=== PATIENT | female | born 1960 | race Caucasian/White ===

== ENCOUNTER 2019-01-20 22:31 | Inpatient (IN) | payer MEDICARE, OTHER ==
[~2019-01-20] VITALS: Ht 157.5 cm; Wt 75.5 kg
[2019-01-20 22:32] VITALS: BP 128/80
--- NOTE | 2019-01-20 22:35 | NUR ---
ED Nurse Notes: Patient salome in by RA from from [facility] for swollen lower lip x 3 days. No acute distress on arrival. Has hx of seizure, hyperlipidemia. Ambulqatory with assist. Alert and oriented x4, verbally responsive. Breathing even and unlabored. No SOB. VSS.
[2019-01-20] MEDS ORDERED: ASPIRIN EC81 MG ORAL (22:40)
[2019-01-20] MEDS ORDERED: BENZTROPINE ME0.5 MG PO (22:41)
[2019-01-20] MEDS ORDERED: ATORVASTATIN CA10 MG ORAL (22:41)
[2019-01-20] MEDS ORDERED: DILANTIN100 MG ORAL (22:41)
[2019-01-20] MEDS ORDERED: PANTOPRAZOLE SO40 MG ORAL (22:42)
--- NOTE | 2019-01-20 22:43 | Emergency Room Report ---
History of Present Illness General Chief Complaint: General Complaint Source: Patient, Medical Record, EMS Present Illness HPI Presents with lower lip swelling. She denies any shortness of breath or chest pain. She is never had this reaction before according to her. EMS thought that she had low blood pressure however they had a blood pressure cuff in the wrong area. Patient denies throat swelling, sore throat, wheezing, dyspnea, skin rashes, nausea, vomiting, diarrhea. No prior history of allergies. No fevers, chills, sore throat, chest pain, palpitations, dysuria, abdominal pain,joint pain, rashes, depression, anxiety, visual changes, headache. The patient has a history of seizures. She is on medication. Allergies: Coded Allergies: No Known Allergies (Unverified , 01/20/19) Patient History Past Medical History: see triage record Social History: Reports: smoking Social History Narrative Assisted living Reviewed Nursing Documentation: PMH: Agreed; PSxH: Agreed Nursing Documentation-PMH Past Medical History: No History, Except For Hx COPD: Yes History Of Psychiatric Problem: Yes Hx Seizures: Yes Review of Systems All Other Systems: negative except mentioned in HPI Physical Exam Vital Signs Date Time Temp Pulse Resp B/P (MAP) Pulse Ox O2 Delivery O2 Flow Rate FiO2 01/20/19 22:32 98.6 80 16 128/80 (96) 98 Room Air Sp02 EP Interpretation: reviewed, normal General Appearance: well appearing, no apparent distress, GCS 15 Head: normocephalic Eyes: bilateral eye normal inspection, bilateral eye PERRL, bilateral eye EOMI ENT: moist mucus membranes, other - Left lower lip most swollen and indurated Neck: full range of motion, supple Respiratory: lungs clear, normal breath sounds, no respiratory distress, no wheezing Cardiovascular #1: regular rate, rhythm, no edema Cardiovascular #2: 2+ radial (R) Gastrointestinal: normal inspection, normal bowel sounds, non tender, non- distended, overweight Genitourinary: no CVA tenderness Musculoskeletal: back normal, normal range of motion, no calf tenderness Neurologic: alert, grossly normal, oriented Psychiatric: depressed affect Skin: other - No urticaria Medical Decision Making Diagnostic Impression: Primary Impression: Cellulitis, lip Additional Impression: Leukocytosis Qualified Codes: D72.828 - Other elevated white blood cell count ER Course Patient presents with lower lip swelling. Differential includes allergic allergic reaction, angiotensin-converting enzyme reaction, contusion, seizure, infection amongst others. Patient will be evaluated EKG, chest x-ray and labs. The patient will be very given a dose of Solu-Medrol and Benadryl. EKG without injury. Chest x-ray no infiltrates. Labs with leukocytosis. Dilantin level normal. Through time observed and lip not change. BC and antibiotics begun as most likely cellulitis/early abscess. Patient admitted medically Dr. Bee. Laboratory Tests Test 01/20/19 23:07 01/20/19 23:32 01/21/19 02:35 White Blood Count 17.1 K/UL (4.8-10.8) H Red Blood Count 4.52 M/UL (4.20-5.40) Hemoglobin 14.7 G/DL (12.0-16.0) Hematocrit 41.6 % (37.0-47.0) Mean Corpuscular Volume 92 FL (80-99) Mean Corpuscular Hemoglobin 32.6 PG (27.0-31.0) H Mean Corpuscular Hemoglobin Concent 35.5 G/DL (32.0-36.0) Red Cell Distribution Width 11.4 % (11.6-14.8) L Platelet Count 232 K/UL (150-450) Mean Platelet Volume 7.3 FL (6.5-10.1) Neutrophils (%) (Auto) 62.3 % (45.0-75.0) Lymphocytes (%) (Auto) 28.1 % (20.0-45.0) Monocytes (%) (Auto) 6.8 % (1.0-10.0) Eosinophils (%) (Auto) 1.8 % (0.0-3.0) Basophils (%) (Auto) 1.1 % (0.0-2.0) Prothrombin Time 9.2 SEC (9.30-11.50) L Prothrombin Time INR 0.9 (0.9-1.1) PTT 25 SEC (23-33) Sodium Level 139 MMOL/L (136-145) Potassium Level 4.2 MMOL/L (3.5-5.1) Chloride Level 104 MMOL/L (98-107) Carbon Dioxide Level 28 MMOL/L (21-32) Anion Gap 7 mmol/L (5-15) Blood Urea Nitrogen 6 mg/dL (7-18) L Creatinine 0.6 MG/DL (0.55-1.30) Estimate Glomerular Filtration Rate > 60 mL/min (>60) Glucose Level 115 MG/DL (74-106) H Calcium Level 9.6 MG/DL (8.5-10.1) Total Bilirubin 0.4 MG/DL (0.2-1.0) Aspartate Amino Transferase (AST) 19 U/L (15-37) Alanine Aminotransferase (ALT) 19 U/L (12-78) Alkaline Phosphatase 138 U/L (46-116) H Total Creatine Kinase 54 U/L (26-308) Troponin I 0.000 ng/mL (0.000-0.056) Pro-B-Type Natriuretic Peptide 33 pg/mL (0-125) Total Protein 8.0 G/DL (6.4-8.2) Albumin 3.4 G/DL (3.4-5.0) Globulin 4.6 g/dL Albumin/Globulin Ratio 0.7 (1.0-2.7) L Phenytoin (Dilantin) Level 13.5 ug/mL (10-20) Urine Color Pale yellow Urine Appearance Clear Urine pH 6.5 (4.5-8.0) Urine Specific [place] 1.005 (1.005-1.035) Urine Protein 1+ (NEGATIVE) H Urine Glucose (UA) Negative (NEGATIVE) Urine Ketones Negative (NEGATIVE) Urine Blood 2+ (NEGATIVE) H Urine Nitrite Negative (NEGATIVE) Urine Bilirubin Negative (NEGATIVE) Urine Urobilinogen Normal MG/DL (0.0-1.0) Urine Leukocyte Esterase Negative (NEGATIVE) Urine RBC 10-15 /HPF (0 - 2) H Urine WBC 0-2 /HPF (0 - 2) Urine Squamous Epithelial Cells Few /LPF (NONE/OCC) Urine Bacteria None /HPF (NONE) Lactic Acid Level 0.90 mmol/L (0.4-2.0) EKG Diagnostic Results Rate: normal Rhythm: NSR ST Segments: no acute changes Rhythm Strip Diag. Results EP Interpretation: yes Rhythm: NSR, no PVC's, no ectopy Chest X-Ray Diagnostic Results Chest X-Ray Diagnostic Results : Chest X-Ray Ordered: Yes # of Views/Limited/Complete: 1 View Indication: Other EP Interpretation: Yes Interpretation: no consolidation, no effusion, no pneumothorax, other - nodularity Impression: Other Electronically Signed by: Electronically signed by David Garcia MD Last Vital Signs Date Time Temp Pulse Resp B/P (MAP) Pulse Ox O2 Delivery O2 Flow Rate FiO2 01/21/19 03:30 98.2 96 20 100/63 (75) 92 01/21/19 03:13 Room Air Status: improved Disposition: ADMITTED INPATIENT Condition: Serious David Garcia MD Jan 20, 2019 22:43
[2019-01-20] MEDS ORDERED: Solu-MEDROL 125mg Inj IVP ONE (22:45)
[2019-01-20] MEDS ORDERED: DiphenhydrAMINE 50mg/ml Inj IVP ONE (22:45)
--- NOTE | 2019-01-20 22:50 | NUR ---
ED Nurse Note: Xray done at bedside.
[2019-01-20 23:22] LABS: BASOPHILS % (AUTO) 1.1 % (0.0-2.0); EOSINOPHILS % (AUTO) 1.8 % (0.0-3.0); HEMATOCRIT 41.6 % (37.0-47.0); HEMOGLOBIN 14.7 G/DL (12.0-16.0); LYMPHOCYTES % (AUTO) 28.1 % (20.0-45.0); MEAN CORPUSCULAR VOLUME 92 FL (80-99); MONOCYTES % (AUTO) 6.8 % (1.0-10.0); NEUTROPHILS % (AUTO) 62.3 % (45.0-75.0); PLATELET COUNT 232 K/UL (150-450); RED BLOOD COUNT 4.52 M/UL (4.20-5.40); RED CELL DISTRIBUTION WIDTH 11.4 % (11.6-14.8); WHITE BLOOD COUNT 17.1 K/UL (4.8-10.8)
--- NOTE | 2019-01-20 23:30 | NUR ---
ED Nurse Note: Blood and urine sent to lab.
[2019-01-20 23:39] LABS: INR 0.9 (0.9-1.1)
[2019-01-20 23:40] LABS: ANION GAP 7 mmol/L (5-15); BLOOD UREA NITROGEN 6 mg/dL (7-18); CALCIUM 9.6 MG/DL (8.5-10.1); CARBON DIOXIDE 28 MMOL/L (21-32); CHLORIDE 104 MMOL/L (98-107); CREATININE 0.6 MG/DL (0.55-1.30); POTASSIUM 4.2 MMOL/L (3.5-5.1); SODIUM 139 MMOL/L (136-145)
[2019-01-20 23:42] LABS: APPEARANCE,URINE CLEAR; BILIRUBIN, URINE NEGATIVE (NEGATIVE); COLOR,URINE PALE YELLOW; GLUCOSE, URINE (UA) NEGATIVE (NEGATIVE); KETONES,URINE NEGATIVE (NEGATIVE); LEUKOCYTE ESTERASE ,URINE NEGATIVE (NEGATIVE); NITRITE,URINE NEGATIVE (NEGATIVE); PH,URINE 6.5 (4.5-8.0); PROTEIN,URINE 1+ (NEGATIVE); UROBILINOGEN,URINE NORMAL MG/DL (0.0-1.0)
[2019-01-20 23:51] LABS: ALANINE AMINOTRANSFERASE 19 U/L (12-78); ALBUMIN 3.4 G/DL (3.4-5.0); ALBUMIN/GLOBULIN RATIO 0.7 (1.0-2.7); ALKALINE PHOSPHATASE 138 U/L (46-116); ASPARTATE AMINO TRANSFERASE 19 U/L (15-37); BILIRUBIN,TOTAL 0.4 MG/DL (0.2-1.0); CREATINE KINASE 54 U/L (26-308)
[2019-01-21] VITALS (7 sets, daily range): BP systolic 90–120; BP diastolic 46–70
--- NOTE | 2019-01-21 01:18 | NUR ---
ED Nurse Note: Patient seen sleeping in bed. Lips still swollen, no worsening noted. Breathing even and unlabored. No SOB. VSS.
[2019-01-21] MEDS ORDERED: Piperacillin/Tazobactam 3.375 GM in NS 110 ML IVPB ONE (02:45)
[2019-01-21] MEDS ORDERED: Vancomycin 1 GM in NS 275 ML IVPB ONE (02:45)
--- NOTE | 2019-01-21 03:13 | NUR ---
TRANSFER TO FLOOR: Patient transferred to [facility] unit as ordered. Report given to Goldie CONCEPCION. Patient is alert and orientedx4, verbally responsive. Breathing even and unlabored. No SOB. IV line on right forearm patent and intact. On vanco 1gm, infusing well. VSS. Belongings was given to the patient.
--- NOTE | 2019-01-21 03:30 | NUR ---
NURSE NOTES: Pt came up to unit via gurney in stable condition and w/belongings accounted for. Pt A&Ox4, VSS, and in no apparent distress. IV site intact/asymptomatic w/Vanco infusing and skin intact and lower lip swelling noted. Will contact admitting MD for orders; will continue to monitor.
--- NOTE | 2019-01-21 07:30 | NUR ---
HAND-OFF: Report given to Cindi Mclean RN. Endorsed to please follow up re: admission orders.
--- NOTE | 2019-01-21 07:45 | NUR ---
NURSE NOTES: Received report from JAMEY Glover. Rounding done with outgoing nurse. Pt asleep in bed. Bed in lowest position, call light within reach. Will continue to monitor.
[2019-01-21] MEDS ORDERED: Albuterol/Ipratropium 3ml neb HHN PRN (08:15)
[2019-01-21] MEDS ORDERED: Morphine Sulfate 2mg/ml Inj(IV/IM USE ONLY) IVP PRN (08:15)
[2019-01-21] MEDS ORDERED: Miralax 17gm pkt ORAL PRN (08:15)
[2019-01-21] MEDS ORDERED: Nitroglycerin Subl 0.4mg tab SL PRN (08:30)
[2019-01-21] MEDS: Phenytoin 100mg cap ORAL SCH ×3 (08:58→21:04)
[2019-01-21] MEDS: Aspirin EC 81mg tab ORAL SCH (08:58)
[2019-01-21] MEDS: Heparin 5000 units/ml inj SUBQ SCH ×2 (08:59→21:07)
--- NOTE | 2019-01-21 09:23 | NUR ---
NURSE NOTES: Dr. Santos was notified for consults.
[2019-01-21] MEDS ORDERED: Cefepime HCl 2 GM in D5W 110 ML IV SCH (10:00)
[2019-01-21] MEDS ORDERED: Vancomycin 1.25gm/NS Premix IVPB SCH (11:00)
--- NOTE | 2019-01-21 16:00 | Consultation ---
History of Present Illness General Date patient seen: Jan 21, 2019 Chief Complaint: General Complaint Present Illness HPI 59 y/o F with hx of seizure disorder, COPD presented to ED on 01/20 with lower lip swelling Denied SOB, chest pain, throat swelling, wheezing, dyspnea, skin rash, nausea/ vomiting/diarrhea, f/c Allergies: Coded Allergies: No Known Allergies (Unverified , 01/20/19) Medication History Scheduled Aspirin Ec* (Aspirin Ec*), 81 MG ORAL DAILY, (Reported) Atorvastatin Calcium* (Lipitor*), 10 MG ORAL BEDTIME, (Reported) Benztropine Mesylate* (Cogentin*), 1 MG PO BID, (Reported) Pantoprazole* (Pantoprazole*), 40 MG ORAL DAILY, (Reported) Phenytoin Sodium Extended* (Dilantin*), 100 MG ORAL THREE TIMES A DAY, (Reported ) Patient History Healthcare decision maker Resuscitation status Full Code Advanced Directive on File Patient History Narrative Pmhx: as above Shx: Reports: smoking Fhx: non contributory Review of Systems All Other Systems: negative except mentioned in HPI Physical Exam Physical Exam Narrative General Appearance: well appearing, no apparent distress, GCS 15 Head: normocephalic Eyes: bilateral eye normal inspection, bilateral eye PERRL, bilateral eye EOMI ENT: moist mucus membranes, other - Left lower lip most swollen and indurated Neck: full range of motion, supple Respiratory: lungs clear, normal breath sounds, no respiratory distress, no wheezing Cardiovascular : regular rate, rhythm, no edema Gastrointestinal: normal inspection, normal bowel sounds, non tender, non- distended, overweight Genitourinary: no CVA tenderness Musculoskeletal: back normal, normal range of motion, no calf tenderness Neurologic: alert, grossly normal, oriented Psychiatric: depressed affect Skin: other - No urticaria Last 24 Hour Vital Signs Date Time Temp Pulse Resp B/P (MAP) Pulse Ox O2 Delivery O2 Flow Rate FiO2 01/21/19 12:00 98.3 80 19 91/58 (69) 100 01/21/19 09:00 Nasal Cannula 2.0 01/21/19 08:45 87 20 93 Nasal Cannula 2.0 28 01/21/19 08:00 98.1 82 18 90/46 (61) 94 01/21/19 04:00 Room Air 01/21/19 03:30 98.2 96 20 100/63 (75) 92 9/2/19 03:13 98.5 98 22 120/70 94 Room Air 01/21/19 03:08 98.5 98 22 120/70 94 Room Air 01/21/19 01:23 97.0 105 21 103/64 95 Room Air 01/20/19 22:32 98.6 80 16 128/80 (96) 98 Room Air 01/20/19 22:32 80 16 Room Air 01/20/19 22:32 98.6 80 16 128/80 98 Room Air Intake and Output 01/20/19 01/21/19 19:00 07:00 Intake Total 0 ml Balance 0 ml Intake Oral 0 ml # Voids 2 Laboratory Tests Test 01/20/19 23:07 01/20/19 23:32 01/21/19 02:35 White Blood Count 17.1 K/UL (4.8-10.8) H Red Blood Count 4.52 M/UL (4.20-5.40) Hemoglobin 14.7 G/DL (12.0-16.0) Hematocrit 41.6 % (37.0-47.0) Mean Corpuscular Volume 92 FL (80-99) Mean Corpuscular Hemoglobin 32.6 PG (27.0-31.0) H Mean Corpuscular Hemoglobin Concent 35.5 G/DL (32.0-36.0) Red Cell Distribution Width 11.4 % (11.6-14.8) L Platelet Count 232 K/UL (150-450) Mean Platelet Volume 7.3 FL (6.5-10.1) Neutrophils (%) (Auto) 62.3 % (45.0-75.0) Lymphocytes (%) (Auto) 28.1 % (20.0-45.0) Monocytes (%) (Auto) 6.8 % (1.0-10.0) Eosinophils (%) (Auto) 1.8 % (0.0-3.0) Basophils (%) (Auto) 1.1 % (0.0-2.0) Prothrombin Time 9.2 SEC (9.30-11.50) L Prothromb Time International Ratio 0.9 (0.9-1.1) Activated Partial Thromboplast Time 25 SEC (23-33) Sodium Level 139 MMOL/L (136-145) Potassium Level 4.2 MMOL/L (3.5-5.1) Chloride Level 104 MMOL/L (98-107) Carbon Dioxide Level 28 MMOL/L (21-32) Anion Gap 7 mmol/L (5-15) Blood Urea Nitrogen 6 mg/dL (7-18) L Creatinine 0.6 MG/DL (0.55-1.30) Estimat Glomerular Filtration Rate > 60 mL/min (>60) Glucose Level 115 MG/DL (74-106) H Calcium Level 9.6 MG/DL (8.5-10.1) Total Bilirubin 0.4 MG/DL (0.2-1.0) Aspartate Amino Transf (AST/SGOT) 19 U/L (15-37) Alanine Aminotransferase (ALT/SGPT) 19 U/L (12-78) Alkaline Phosphatase 138 U/L (46-116) H Total Creatine Kinase 54 U/L (26-308) Troponin I 0.000 ng/mL (0.000-0.056) Pro-B-Type Natriuretic Peptide 33 pg/mL (0-125) Total Protein 8.0 G/DL (6.4-8.2) Albumin 3.4 G/DL (3.4-5.0) Globulin 4.6 g/dL Albumin/Globulin Ratio 0.7 (1.0-2.7) L Phenytoin (Dilantin) Level 13.5 ug/mL (10-20) Urine Color Pale yellow Urine Appearance Clear Urine pH 6.5 (4.5-8.0) Urine Specific [place] 1.005 (1.005-1.035) Urine Protein 1+ (NEGATIVE) H Urine Glucose (UA) Negative (NEGATIVE) Urine Ketones Negative (NEGATIVE) Urine Blood 2+ (NEGATIVE) H Urine Nitrite Negative (NEGATIVE) Urine Bilirubin Negative (NEGATIVE) Urine Urobilinogen Normal MG/DL (0.0-1.0) Urine Leukocyte Esterase Negative (NEGATIVE) Urine RBC 10-15 /HPF (0 - 2) H Urine WBC 0-2 /HPF (0 - 2) Urine Squamous Epithelial Cells Few /LPF (NONE/OCC) Urine Bacteria None /HPF (NONE) Lactic Acid Level 0.90 mmol/L (0.4-2.0) Microbiology Date/Time Source Procedure Growth Status 01/21/19 02:30 Rectum Received Height (Feet): 5 Height (Inches): 2.00 Weight (Pounds): 166 Medications Current Medications Medications (Trade) Dose Ordered Sig/Wolfgang Route PRN Reason Start Time Stop Time Status Last Admin Dose Admin Acetaminophen (Tylenol) 650 mg Q4H PRN ORAL T>100.5 01/21/19 08:15 02/20/19 08:14 Albuterol/ Ipratropium (Albuterol/ Ipratropium) 3 ml Q4H PRN HHN Shortness of Breath 01/21/19 08:15 01/26/19 08:14 Aspirin (Ecotrin) 81 mg DAILY ORAL 01/21/19 09:00 02/20/19 08:59 01/21/19 08:58 Atorvastatin Calcium (Lipitor) 10 mg BEDTIME ORAL 01/21/19 21:00 02/20/19 20:59 Cefepime HCl 2 gm/ Dextrose 110 ml @ 220 mls/hr EVERY 12 HOURS IV 01/21/19 10:00 01/28/19 09:59 01/21/19 10:26 Dextrose (Dextrose 50%) 25 ml STAT PRN IV Hypoglycemia 01/21/19 08:15 02/20/19 08:14 Dextrose (Dextrose 50%) 50 ml Q30M PRN IV Hypoglycemia 01/21/19 08:15 02/20/19 08:14 Heparin Sodium (Porcine) (Heparin 5000 units/ml) 5,000 units EVERY 12 HOURS SUBQ 01/21/19 09:00 02/20/19 08:59 01/21/19 08:59 Morphine Sulfate (Morphine Sulfate) 2 mg Q4H PRN IVP Moderate Pain (Pain Scale 4-6) 01/21/19 08:15 01/28/19 08:14 Nitroglycerin (Ntg) 0.4 mg Q5MIN X 3 DOSES PRN SL Prn Chest Pain 01/21/19 08:30 02/20/19 08:29 Ondansetron HCl (Zofran) 4 mg Q6H PRN IVP Nausea & Vomiting 01/21/19 08:15 02/20/19 08:14 Pantoprazole (Protonix) 40 mg DAILY ORAL 01/21/19 09:00 02/20/19 08:59 01/21/19 08:58 Phenytoin (Dilantin) 100 mg Q8HR ORAL 01/21/19 09:00 02/20/19 08:59 01/21/19 13:56 Polyethylene Glycol (Miralax) 17 gm DAILYPRN PRN ORAL Constipation 01/21/19 08:15 02/20/19 08:14 Temazepam (Restoril) 15 mg HSPRN PRN ORAL Insomnia 01/21/19 21:00 01/28/19 20:59 Vancomycin HCl (Vanco rx to dose) 1 ea DAILY PRN MISC . 01/21/19 08:30 02/20/19 08:29 Vancomycin/Sodium Chloride 275 ml @ 183.333 mls/hr Q12HR IVPB 01/21/19 11:00 01/26/19 10:59 01/21/19 12:50 Assessment/Plan Assessment/Plan: Abx: IV Vancomycin 01/21- Cefepime 01/21- Zosyn x1 01/21 Assessment: Lower lip lesion- doubt infection- ?allergic reaction vs angioedema Afebrile Leukocytosis, likely reactive -u/a neg seizure disorder COPD Plan: -D/c IV Vancomcyin and Cefepime #1 -f/u cx -Monitor CBC/CMP, temperatures -CBC am -C1 inhibitor levels -Supervisor Files evaluation Thank you for this consultation. Will continue to follow along with you. Discussed with Janelle Rodrigues M.D. Jan 21, 2019 16:00
--- NOTE | 2019-01-21 17:15 | History and Physical Report ---
DATE OF ADMISSION: 01/21/2019 TIME SEEN: 9 a.m. CONSULTANTS: 1. Fred Morris M.D. 2. Nathen Neely M.D. CHIEF COMPLAINT: Lower lip swelling, cellulitis. BRIEF HISTORY: This is a 59-year-old female from [facility], who presents with three days of increasing lower lip cellulitis and red and swelling. The patient does not remember any bug bite or any new medication. The patient came with above, no respiratory distress, admitted to medical floor for further treatment. Currently, calm in bed, O2 NC, eating, no complaint. REVIEW OF SYSTEMS: No chest pain. No shortness of breath. No nausea, vomiting, or diarrhea. PAST MEDICAL HISTORY: Per patient nothing. PAST SURGICAL HISTORY: None. ALLERGIES: Denies. MEDICATIONS: Include Lipitor, Restoril, vancomycin, cefepime, Ecotrin, Protonix, Dilantin, heparin, nitroglycerin, Zofran, morphine, and albuterol. SOCIAL HISTORY: Positive smoking. No alcohol. No intravenous drug abuse. FAMILY HISTORY: Noncontributory. PHYSICAL EXAMINATION: GENERAL: Calm in bed, oriented x2, in no acute distress. VITAL SIGNS: Temperature 98 degrees, pulse 82, respirations 18, and blood pressure 90/46. CARDIOVASCULAR: No murmurs. LUNGS: Distant and clear. ABDOMEN: Bowel sound positive. Nontender. Nondistended. EXTREMITIES: No cyanosis, clubbing, or edema. SKIN: Lower lip swelling 0.5 cm x 0.5 cm protrusion. No redness. No tenderness. No increased warmth. NEUROLOGIC: The patient moves all extremities, slightly weak. LABORATORY AND DIAGNOSTIC DATA: Labs at this time show white count 17, otherwise CBC is normal. BMP shows BUN 6, glucose 115. Alkaline phosphatase 138. Troponin 0.00. INR is 0.9. PTT is 25. Urinalysis shows 2+ blood, 1+ protein, otherwise normal. Urine tox, phenytoin . ASSESSMENT: 1. Lower lip cellulitis, swelling. 2. Leukocytosis. PLAN: 1. Antibiotics per Infectious Disease. 2. Anti-allergy medication p.r.n. 3. Dr. Morris and Dr. Neely to consult. 4. PT and dietary evaluation. 5. CBC and BMP in the morning. Jules Bee D.O. DR: TIANA JOB#: [id number] CC:
--- NOTE | 2019-01-21 19:37 | NUR ---
HAND-OFF: Report given to JAMEY Dean.
--- NOTE | 2019-01-21 22:39 | NUR ---
NURSE NOTE: Pt is oriented to self and place, displays rambling speech. VS stable. Orders reviewed and physical assessment completed. Pt denies any pain. Seizure pads are in place. The bed is low and locked and the bed alarm is activated. Call mensah is within reach. Will continue to monitor.
[2019-01-22] MEDS ORDERED: Vancomycin 1 GM in D5W 275 ML IV SCH (00:30)
[2019-01-22 04:30] VITALS: BP 105/61
[2019-01-22] MEDS: Phenytoin 100mg cap ORAL SCH ×3 (05:12→21:56)
[2019-01-22 06:51] LABS: ALANINE AMINOTRANSFERASE 16 U/L (12-78); ALBUMIN 2.9 G/DL (3.4-5.0); ALBUMIN/GLOBULIN RATIO 0.7 (1.0-2.7); ALKALINE PHOSPHATASE 106 U/L (46-116); ANION GAP 12 mmol/L (5-15); ASPARTATE AMINO TRANSFERASE 11 U/L (15-37); BILIRUBIN,TOTAL 0.2 MG/DL (0.2-1.0); BLOOD UREA NITROGEN 13 mg/dL (7-18); CALCIUM 9.3 MG/DL (8.5-10.1); CARBON DIOXIDE 25 MMOL/L (21-32); CHLORIDE 113 MMOL/L (98-107); CREATININE 0.5 MG/DL (0.55-1.30); POTASSIUM 3.6 MMOL/L (3.5-5.1); SODIUM 150 MMOL/L (136-145)
[2019-01-22 07:04] LABS: EOSINOPHILS % (AUTO) 3.8 % (0.0-3.0); HEMATOCRIT 40.1 % (37.0-47.0); HEMOGLOBIN 13.3 G/DL (12.0-16.0); LYMPHOCYTES % (AUTO) 46.8 % (20.0-45.0); MEAN CORPUSCULAR VOLUME 97 FL (80-99); MONOCYTES % (AUTO) 6.1 % (1.0-10.0); NEUTROPHILS % (AUTO) 42.4 % (45.0-75.0); PLATELET COUNT 253 K/UL (150-450); RED BLOOD COUNT 4.15 M/UL (4.20-5.40); RED CELL DISTRIBUTION WIDTH 11.9 % (11.6-14.8); WHITE BLOOD COUNT 10.5 K/UL (4.8-10.8)
--- NOTE | 2019-01-22 07:30 | NUR ---
NURSE NOTES: Received report from Dianne CONCEPCION. Patient is asleep during rounds, no acute distress noted, RR even and unlabored. IV intact. Fall and seizure precautions maintained, side rails padded x2, side rails upx3, bed low and locked, call light in reach. Will continue to monitor.
[2019-01-22 08:00] VITALS: BP 96/61
[2019-01-22] MEDS: Aspirin EC 81mg tab ORAL SCH (09:50)
[2019-01-22] MEDS: Heparin 5000 units/ml inj SUBQ SCH ×2 (09:51→20:23)
--- NOTE | 2019-01-22 10:10 | NUR ---
PT EVALUATION NOTE Patient seen for initial evaluation, see complete evaluation for details. Patient presents with generalized weakness, impaired balance and decreased safety awareness which affects patient's ability to complete mobility tasks and presents a fall risk. Patient requires min assist for transfers and ambulation limited distance with FWW. Patient ambulates on the forefoot of bilateral feet due to plantar flexion contractures with impaired balance. Patient will benefit from skilled inpatient PT intervention to address strength, ROM, safety, balance and functional mobility. Recommend return to board and care at discharge once medically cleared by MD. Addendum: 01/22/19 at 1254 by ROXANA NIX PT Amended: Links added.
--- NOTE | 2019-01-22 10:48 | Diagnostic Imaging Report ---
Indication: Chest pain Technique: One view of the chest Comparison: none Findings: The heart is enlarged. There is some atelectasis in the right perihilar region. There is equivocal minimal interstitial prominence and indistinctness. No focal airspace consolidation. Pleural spaces are clear. Impression: Cardiomegaly Equivocal minimal interstitial congestion. Correlate with clinical findings
--- NOTE | 2019-01-22 11:24 | NUR ---
NURSE NOTES: Patient had episode of diarrhea. Informed Dr. Morris and ordered c-diff per protocol. Stool collected and sent to lab.
--- NOTE | 2019-01-22 11:32 | Consultation ---
History of Present Illness General Date patient seen: Jan 22, 2019 Chief Complaint: General Complaint Present Illness HPI 59 year old female with hx of COPD, Nicotine addiction, chronic seizures, prison resident presented to ER with lower lip swelling. She denies any shortness of breath or chest pain. . Patient denies throat swelling, sore throat, wheezing, dyspnea, skin rashes, nausea, vomiting, diarrhea. Pt was diagnosed to have lower lip cellulitis and admitted for further treatment. Allergies: Coded Allergies: No Known Allergies (Unverified , 01/20/19) Medication History Scheduled Aspirin Ec* (Aspirin Ec*), 81 MG ORAL DAILY, (Reported) Atorvastatin Calcium* (Lipitor*), 10 MG ORAL BEDTIME, (Reported) Benztropine Mesylate* (Cogentin*), 1 MG PO BID, (Reported) Pantoprazole* (Pantoprazole*), 40 MG ORAL DAILY, (Reported) Phenytoin Sodium Extended* (Dilantin*), 100 MG ORAL THREE TIMES A DAY, (Reported ) Patient History Healthcare decision maker Resuscitation status Full Code Advanced Directive on File Past Medical/Surgical History Past Medical/Surgical History: (1) COPD (chronic obstructive pulmonary disease) (2) Nicotine addiction Review of Systems All Other Systems: negative except mentioned in HPI Physical Exam General Appearance: WD/WN Lines, tubes and drains: peripheral HEENT: normocephalic, atraumatic Neck: non-tender, normal alignment, normal inspection Respiratory/Chest: chest wall non-tender, lungs clear Breasts: no masses Cardiovascular/Chest: normal peripheral pulses Abdomen: normal bowel sounds, non tender Genitourinary/Rectal: normal genital exam Extremities: normal range of motion Skin Exam: normal pigmentation Last 24 Hour Vital Signs Date Time Temp Pulse Resp B/P (MAP) Pulse Ox O2 Delivery O2 Flow Rate FiO2 01/22/19 08:00 99.3 76 19 96/61 (73) 95 01/22/19 07:54 93 Nasal Cannula 2.0 28 01/22/19 07:53 92 20 93 Nasal Cannula 2.0 28 01/22/19 04:30 98.9 87 17 105/61 (76) 92 01/21/19 21:00 Nasal Cannula 2.0 01/21/19 20:49 98.9 80 18 94/59 (71) 95 01/21/19 20:00 80 20 95 Nasal Cannula 2.0 28 01/21/19 20:00 95 Nasal Cannula 2.0 28 01/21/19 16:00 98.9 83 18 95/66 (76) 95 01/21/19 12:00 98.3 80 19 91/58 (69) 100 Intake and Output 01/21/19 01/22/19 19:00 07:00 Intake Total 1085 ml 240 ml Balance 1085 ml 240 ml Intake Oral 700 ml 240 ml IV Total 385 ml # Voids 4 2 # Bowel Movements 2 Laboratory Tests Test 01/22/19 05:24 01/22/19 05:25 White Blood Count 10.5 K/UL (4.8-10.8) Red Blood Count 4.15 M/UL (4.20-5.40) L Hemoglobin 13.3 G/DL (12.0-16.0) Hematocrit 40.1 % (37.0-47.0) Mean Corpuscular Volume 97 FL (80-99) Mean Corpuscular Hemoglobin 32.0 PG (27.0-31.0) H Mean Corpuscular Hemoglobin Concent 33.1 G/DL (32.0-36.0) Red Cell Distribution Width 11.9 % (11.6-14.8) Platelet Count 253 K/UL (150-450) Mean Platelet Volume 7.0 FL (6.5-10.1) Neutrophils (%) (Auto) 42.4 % (45.0-75.0) L Lymphocytes (%) (Auto) 46.8 % (20.0-45.0) H Monocytes (%) (Auto) 6.1 % (1.0-10.0) Eosinophils (%) (Auto) 3.8 % (0.0-3.0) H Basophils (%) (Auto) 1.0 % (0.0-2.0) Sodium Level 150 MMOL/L (136-145) H Potassium Level 3.6 MMOL/L (3.5-5.1) Chloride Level 113 MMOL/L (98-107) H Carbon Dioxide Level 25 MMOL/L (21-32) Anion Gap 12 mmol/L (5-15) Blood Urea Nitrogen 13 mg/dL (7-18) Creatinine 0.5 MG/DL (0.55-1.30) L Estimat Glomerular Filtration Rate > 60 mL/min (>60) Glucose Level 105 MG/DL (74-106) Calcium Level 9.3 MG/DL (8.5-10.1) Total Bilirubin 0.2 MG/DL (0.2-1.0) Aspartate Amino Transf (AST/SGOT) 11 U/L (15-37) L Alanine Aminotransferase (ALT/SGPT) 16 U/L (12-78) Alkaline Phosphatase 106 U/L (46-116) Total Protein 6.8 G/DL (6.4-8.2) Albumin 2.9 G/DL (3.4-5.0) L Globulin 3.9 g/dL Albumin/Globulin Ratio 0.7 (1.0-2.7) L Circulating Immune Complexes Pending C1 Esterase Inhibitor Pending Height (Feet): 5 Height (Inches): 2.00 Weight (Pounds): 166 Medications Current Medications Medications (Trade) Dose Ordered Sig/Wolfgang Route PRN Reason Start Time Stop Time Status Last Admin Dose Admin Acetaminophen (Tylenol) 650 mg Q4H PRN ORAL T>100.5 01/21/19 08:15 02/20/19 08:14 Albuterol/ Ipratropium (Albuterol/ Ipratropium) 3 ml Q4H PRN HHN Shortness of Breath 01/21/19 08:15 01/26/19 08:14 Aspirin (Ecotrin) 81 mg DAILY ORAL 01/21/19 09:00 02/20/19 08:59 01/22/19 09:50 Atorvastatin Calcium (Lipitor) 10 mg BEDTIME ORAL 01/21/19 21:00 02/20/19 20:59 01/21/19 21:04 Dextrose (Dextrose 50%) 25 ml STAT PRN IV Hypoglycemia 01/21/19 08:15 02/20/19 08:14 Dextrose (Dextrose 50%) 50 ml Q30M PRN IV Hypoglycemia 01/21/19 08:15 02/20/19 08:14 Heparin Sodium (Porcine) (Heparin 5000 units/ml) 5,000 units EVERY 12 HOURS SUBQ 01/21/19 09:00 02/20/19 08:59 01/22/19 09:51 Morphine Sulfate (Morphine Sulfate) 2 mg Q4H PRN IVP Moderate Pain (Pain Scale 4-6) 01/21/19 08:15 01/28/19 08:14 Nitroglycerin (Ntg) 0.4 mg Q5MIN X 3 DOSES PRN SL Prn Chest Pain 01/21/19 08:30 02/20/19 08:29 Ondansetron HCl (Zofran) 4 mg Q6H PRN IVP Nausea & Vomiting 01/21/19 08:15 02/20/19 08:14 Pantoprazole (Protonix) 40 mg DAILY ORAL 01/21/19 09:00 02/20/19 08:59 01/22/19 09:50 Phenytoin (Dilantin) 100 mg Q8HR ORAL 01/21/19 09:00 02/20/19 08:59 01/22/19 05:12 Polyethylene Glycol (Miralax) 17 gm DAILYPRN PRN ORAL Constipation 01/21/19 08:15 02/20/19 08:14 Temazepam (Restoril) 15 mg HSPRN PRN ORAL Insomnia 01/21/19 21:00 01/28/19 20:59 01/21/19 22:24 Assessment/Plan Problem List: (1) Facial cellulitis ICD Codes: L03.211 - Cellulitis of face SNOMED: 017295117 (2) COPD (chronic obstructive pulmonary disease) ICD Codes: J44.9 - Chronic obstructive pulmonary disease, unspecified SNOMED: 17650024 (3) Nicotine addiction ICD Codes: F17.200 - Nicotine dependence, unspecified, uncomplicated SNOMED: 98252190 Assessment/Plan: respiratory treatment titrate fio2 to sat of 92% IV abx for cellulitis symptomatic treatment seizure precaution Fred Morris MD Jan 22, 2019 11:32
--- NOTE | 2019-01-22 11:59 | Infectious Diseases Prog Note ---
Assessment/Plan Assessment/Plan Assessment: Lower lip swelling- doubt infection- ?allergic reaction vs angioedema Afebrile Leukocytosis, likely reactive- resolved -u/a neg seizure disorder COPD Plan: -Continue to monitor off abx -01/21 SP IV Vancomycin, Cefepime #1, ZOsyn x1 -f/u cx -Monitor CBC/CMP, temperatures -f/u C1 inhibitor levels -Engineering Administrator evaluation Thank you for this consultation. Will continue to follow along with you. Discussed with RN. Subjective Allergies: Coded Allergies: No Known Allergies (Unverified , 01/20/19) Subjective afebrile leukocytosis resolved Objective Vital Signs Last 24 Hour Vital Signs Date Time Temp Pulse Resp B/P (MAP) Pulse Ox O2 Delivery O2 Flow Rate FiO2 01/22/19 08:00 99.3 76 19 96/61 (73) 95 01/22/19 07:54 93 Nasal Cannula 2.0 28 01/22/19 07:53 92 20 93 Nasal Cannula 2.0 28 01/22/19 04:30 98.9 87 17 105/61 (76) 92 01/21/19 21:00 Nasal Cannula 2.0 01/21/19 20:49 98.9 80 18 94/59 (71) 95 01/21/19 20:00 80 20 95 Nasal Cannula 2.0 28 01/21/19 20:00 95 Nasal Cannula 2.0 28 01/21/19 16:00 98.9 83 18 95/66 (76) 95 01/21/19 12:00 98.3 80 19 91/58 (69) 100 Height (Feet): 5 Height (Inches): 2.00 Weight (Pounds): 166 Objective General Appearance: well appearing, no apparent distress, GCS 15 Head: normocephalic Eyes: bilateral eye normal inspection, bilateral eye PERRL, bilateral eye EOMI ENT: moist mucus membranes, other - Left lower lip most swollen and indurated Neck: full range of motion, supple Respiratory: lungs clear, normal breath sounds, no respiratory distress, no wheezing Cardiovascular : regular rate, rhythm, no edema Gastrointestinal: normal inspection, normal bowel sounds, non tender, non- distended, overweight Genitourinary: no CVA tenderness Musculoskeletal: back normal, normal range of motion, no calf tenderness Neurologic: alert, grossly normal, oriented Psychiatric: depressed affect Skin: other - No urticaria Microbiology Date/Time Source Procedure Growth Status 01/21/19 02:35 Blood Blood Culture - Preliminary NO GROWTH AFTER 24 HOURS Resulted 01/21/19 02:20 Blood Blood Culture - Preliminary NO GROWTH AFTER 24 HOURS Resulted 01/21/19 02:30 Rectum Received Laboratory Tests Test 01/22/19 05:24 01/22/19 05:25 White Blood Count 10.5 K/UL (4.8-10.8) Red Blood Count 4.15 M/UL (4.20-5.40) L Hemoglobin 13.3 G/DL (12.0-16.0) Hematocrit 40.1 % (37.0-47.0) Mean Corpuscular Volume 97 FL (80-99) Mean Corpuscular Hemoglobin 32.0 PG (27.0-31.0) H Mean Corpuscular Hemoglobin Concent 33.1 G/DL (32.0-36.0) Red Cell Distribution Width 11.9 % (11.6-14.8) Platelet Count 253 K/UL (150-450) Mean Platelet Volume 7.0 FL (6.5-10.1) Neutrophils (%) (Auto) 42.4 % (45.0-75.0) L Lymphocytes (%) (Auto) 46.8 % (20.0-45.0) H Monocytes (%) (Auto) 6.1 % (1.0-10.0) Eosinophils (%) (Auto) 3.8 % (0.0-3.0) H Basophils (%) (Auto) 1.0 % (0.0-2.0) Sodium Level 150 MMOL/L (136-145) H Potassium Level 3.6 MMOL/L (3.5-5.1) Chloride Level 113 MMOL/L (98-107) H Carbon Dioxide Level 25 MMOL/L (21-32) Anion Gap 12 mmol/L (5-15) Blood Urea Nitrogen 13 mg/dL (7-18) Creatinine 0.5 MG/DL (0.55-1.30) L Estimat Glomerular Filtration Rate > 60 mL/min (>60) Glucose Level 105 MG/DL (74-106) Calcium Level 9.3 MG/DL (8.5-10.1) Total Bilirubin 0.2 MG/DL (0.2-1.0) Aspartate Amino Transf (AST/SGOT) 11 U/L (15-37) L Alanine Aminotransferase (ALT/SGPT) 16 U/L (12-78) Alkaline Phosphatase 106 U/L (46-116) Total Protein 6.8 G/DL (6.4-8.2) Albumin 2.9 G/DL (3.4-5.0) L Globulin 3.9 g/dL Albumin/Globulin Ratio 0.7 (1.0-2.7) L Circulating Immune Complexes Pending C1 Esterase Inhibitor Pending Current Medications Medications (Trade) Dose Ordered Sig/Wolfgang Route PRN Reason Start Time Stop Time Status Last Admin Dose Admin Acetaminophen (Tylenol) 650 mg Q4H PRN ORAL T>100.5 01/21/19 08:15 02/20/19 08:14 Albuterol/ Ipratropium (Albuterol/ Ipratropium) 3 ml Q4H PRN HHN Shortness of Breath 01/21/19 08:15 01/26/19 08:14 Aspirin (Ecotrin) 81 mg DAILY ORAL 01/21/19 09:00 02/20/19 08:59 01/22/19 09:50 Atorvastatin Calcium (Lipitor) 10 mg BEDTIME ORAL 01/21/19 21:00 02/20/19 20:59 01/21/19 21:04 Dextrose (Dextrose 50%) 25 ml STAT PRN IV Hypoglycemia 01/21/19 08:15 02/20/19 08:14 Dextrose (Dextrose 50%) 50 ml Q30M PRN IV Hypoglycemia 01/21/19 08:15 02/20/19 08:14 Heparin Sodium (Porcine) (Heparin 5000 units/ml) 5,000 units EVERY 12 HOURS SUBQ 01/21/19 09:00 02/20/19 08:59 01/22/19 09:51 Morphine Sulfate (Morphine Sulfate) 2 mg Q4H PRN IVP Moderate Pain (Pain Scale 4-6) 01/21/19 08:15 01/28/19 08:14 Nitroglycerin (Ntg) 0.4 mg Q5MIN X 3 DOSES PRN SL Prn Chest Pain 01/21/19 08:30 02/20/19 08:29 Ondansetron HCl (Zofran) 4 mg Q6H PRN IVP Nausea & Vomiting 01/21/19 08:15 02/20/19 08:14 Pantoprazole (Protonix) 40 mg DAILY ORAL 01/21/19 09:00 02/20/19 08:59 01/22/19 09:50 Phenytoin (Dilantin) 100 mg Q8HR ORAL 01/21/19 09:00 02/20/19 08:59 01/22/19 05:12 Polyethylene Glycol (Miralax) 17 gm DAILYPRN PRN ORAL Constipation 01/21/19 08:15 02/20/19 08:14 Temazepam (Restoril) 15 mg HSPRN PRN ORAL Insomnia 01/21/19 21:00 01/28/19 20:59 01/21/19 22:24 Janelle Krueger M.D. Jan 22, 2019 11:59
[2019-01-22 12:00] VITALS: BP 96/60
--- NOTE | 2019-01-22 13:18 | General Progress Note ---
Assessment/Plan Problem List: (1) Cellulitis, lip ICD Codes: K13.0 - Diseases of lips SNOMED: 53319501 (2) Facial cellulitis ICD Codes: L03.211 - Cellulitis of face SNOMED: 564649277 Status: stable, progressing Assessment/Plan: id f/u antiallergy prn pt diet cbc bmp am Subjective Constitutional: Reports: weakness Allergies: Coded Allergies: No Known Allergies (Unverified , 01/20/19) All Systems: reviewed and negative except above Subjective o2nc calm Objective Last 24 Hour Vital Signs Date Time Temp Pulse Resp B/P (MAP) Pulse Ox O2 Delivery O2 Flow Rate FiO2 01/22/19 12:00 98.5 65 19 96/60 (72) 96 01/22/19 08:00 99.3 76 19 96/61 (73) 95 01/22/19 07:54 93 Nasal Cannula 2.0 28 01/22/19 07:53 92 20 93 Nasal Cannula 2.0 28 01/22/19 04:30 98.9 87 17 105/61 (76) 92 01/21/19 21:00 Nasal Cannula 2.0 01/21/19 20:49 98.9 80 18 94/59 (71) 95 01/21/19 20:00 80 20 95 Nasal Cannula 2.0 28 01/21/19 20:00 95 Nasal Cannula 2.0 28 01/21/19 16:00 98.9 83 18 95/66 (76) 95 Intake and Output 01/21/19 01/22/19 19:00 07:00 Intake Total 1085 ml 240 ml Balance 1085 ml 240 ml Intake Oral 700 ml 240 ml IV Total 385 ml # Voids 4 2 # Bowel Movements 2 Laboratory Tests 01/22/19 05:24: White Blood Count 10.5, Red Blood Count 4.15L, Hemoglobin 13.3, Hematocrit 40.1 , Mean Corpuscular Volume 97, Mean Corpuscular Hemoglobin 32.0H, Mean Corpuscular Hemoglobin Concent 33.1, Red Cell Distribution Width 11.9, Platelet Count 253, Mean Platelet Volume 7.0, Neutrophils (%) (Auto) 42.4L, Lymphocytes ( %) (Auto) 46.8H, Monocytes (%) (Auto) 6.1, Eosinophils (%) (Auto) 3.8H, Basophils (%) (Auto) 1.0, Sodium Level 150H, Potassium Level 3.6, Chloride Level 113H, Carbon Dioxide Level 25, Anion Gap 12, Blood Urea Nitrogen 13, Creatinine 0.5L, Estimat Glomerular Filtration Rate > 60, Glucose Level 105, Calcium Level 9.3, Total Bilirubin 0.2, Aspartate Amino Transf (AST/SGOT) 11L, Alanine Aminotransferase (ALT/SGPT) 16, Alkaline Phosphatase 106, Total Protein 6.8, Albumin 2.9L, Globulin 3.9, Albumin/Globulin Ratio 0.7L 01/22/19 05:25: Circulating Immune Complexes [Pending], C1 Esterase Inhibitor [Pending] Height (Feet): 5 Height (Inches): 2.00 Weight (Pounds): 166 General Appearance: lethargic EENT: normal ENT inspection Neck: normal alignment Cardiovascular: normal peripheral pulses, normal rate, regular rhythm Respiratory/Chest: chest wall non-tender, lungs clear, normal breath sounds Abdomen: normal bowel sounds, non tender, soft Extremities: normal inspection Edema: no edema noted Arm (L), no edema noted Arm (R), no edema noted Leg (L), no edema noted Leg (R), no edema noted Pedal (L), no edema noted Pedal (R), no edema noted Generalized Neurologic: responsive, motor weakness Skin: normal pigmentation, warm/dry Objective lower lip sl swollen Jules Bee DO Jan 22, 2019 13:18
[2019-01-22] MEDS: Doxycycline Monohydrate 100mg ORAL SCH ×2 (13:21→20:22)
[2019-01-22 16:00] VITALS: BP 105/57
--- NOTE | 2019-01-22 17:06 | NUR ---
CASE MANAGEMENT: INITIAL REVIEW 59 YO F [facility] PMHx: COPD. SZ. SI:LIP CELLULITIS. T 98.6 HR 80 RR 16 B/P 128/80 SATS 98% ON RA WBC 17.1 BUN 6 GLU 115 ALP 138 IS: SOLU MEDROL IV X1 BENADRYL IV X1 PATIENT ADMITTED TO MED/SURG 01/21/2019 @ 0220 DCP: PATIENT TO BE DISCHARGED TO SNF ONCE MEDICALLY CLEARED. PLAN OF CARE: IV ANTIBX Addendum: 01/23/19 at 0649 by Raissa Echeverria CM INTERQUAL MET
--- NOTE | 2019-01-22 19:30 | NUR ---
HAND-OFF: Report given to Dianne CONCEPCION. Patient is in stable condition.
[2019-01-22 20:00] VITALS: BP 102/59
--- NOTE | 2019-01-22 22:51 | NUR ---
NURSE NOTE: Pt is alert and oriented to self and purpose. VS stable. Physical assessment completed and orders reviewed. Pt denies any pain. Seizure and fall precautions maintained. Call mensah is within reach. Will continue to monitor.
[2019-01-23] VITALS: BP 95/54
[2019-01-23 04:00] VITALS: BP 104/66
[2019-01-23] MEDS: Phenytoin 100mg cap ORAL SCH ×2 (06:02→14:24)
[2019-01-23 06:17] LABS: ANION GAP 10 mmol/L (5-15); BLOOD UREA NITROGEN 18 mg/dL (7-18); CALCIUM 9.3 MG/DL (8.5-10.1); CARBON DIOXIDE 25 MMOL/L (21-32); CHLORIDE 113 MMOL/L (98-107); CREATININE 0.5 MG/DL (0.55-1.30); POTASSIUM 3.7 MMOL/L (3.5-5.1); SODIUM 148 MMOL/L (136-145)
[2019-01-23 06:19] LABS: BASOPHILS % (AUTO) 1.1 % (0.0-2.0); EOSINOPHILS % (AUTO) 4.4 % (0.0-3.0); HEMATOCRIT 39.1 % (37.0-47.0); HEMOGLOBIN 12.9 G/DL (12.0-16.0); LYMPHOCYTES % (AUTO) 51.5 % (20.0-45.0); MEAN CORPUSCULAR VOLUME 97 FL (80-99); MONOCYTES % (AUTO) 7.9 % (1.0-10.0); NEUTROPHILS % (AUTO) 35.1 % (45.0-75.0); PLATELET COUNT 267 K/UL (150-450); RED BLOOD COUNT 4.03 M/UL (4.20-5.40); RED CELL DISTRIBUTION WIDTH 12.1 % (11.6-14.8); WHITE BLOOD COUNT 8.6 K/UL (4.8-10.8)
--- NOTE | 2019-01-23 07:30 | NUR ---
NURSE NOTES: AWAKE/ALERT X2-3. NO C/O PAIN IN NO DISTRESS.
--- NOTE | 2019-01-23 07:31 | NUR ---
HAND-OFF: Report given to Charley. Pt is stable.
[2019-01-23 08:00] VITALS: BP 105/63
[2019-01-23] MEDS: Heparin 5000 units/ml inj SUBQ SCH (08:54)
[2019-01-23] MEDS: Aspirin EC 81mg tab ORAL SCH (08:54)
[2019-01-23] MEDS: Doxycycline Monohydrate 100mg ORAL SCH (08:54)
--- NOTE | 2019-01-23 10:18 | General Progress Note ---
Assessment/Plan Problem List: (1) Cellulitis, lip ICD Codes: K13.0 - Diseases of lips SNOMED: 14549267 (2) Facial cellulitis ICD Codes: L03.211 - Cellulitis of face SNOMED: 873125773 Status: stable, progressing Assessment/Plan: id f/u antiallergy prn pt diet cbc bmp am dc plan Subjective Constitutional: Reports: weakness Allergies: Coded Allergies: No Known Allergies (Unverified , 01/20/19) All Systems: reviewed and negative except above Subjective o2nc calm Objective Last 24 Hour Vital Signs Date Time Temp Pulse Resp B/P (MAP) Pulse Ox O2 Delivery O2 Flow Rate FiO2 01/23/19 09:00 Nasal Cannula 2.0 01/23/19 08:00 97.8 83 18 105/63 (77) 95 01/23/19 04:00 97.7 73 16 104/66 (79) 94 01/23/19 00:00 97.9 70 18 95/54 (68) 93 01/22/19 21:08 96 Nasal Cannula 2.0 28 01/22/19 21:08 88 20 96 Nasal Cannula 2.0 28 01/22/19 21:00 Nasal Cannula 2.0 01/22/19 20:00 98.3 67 17 102/59 (73) 96 01/22/19 16:00 98.7 67 18 105/57 (73) 96 01/22/19 12:00 98.5 65 19 96/60 (72) 96 Intake and Output 01/22/19 01/23/19 19:00 07:00 Intake Total 800 ml Balance 800 ml Intake Oral 800 ml # Voids 3 2 # Bowel Movements 2 1 Laboratory Tests 01/23/19 05:10: White Blood Count 8.6, Red Blood Count 4.03L, Hemoglobin 12.9, Hematocrit 39.1, Mean Corpuscular Volume 97, Mean Corpuscular Hemoglobin 31.9H, Mean Corpuscular Hemoglobin Concent 32.9, Red Cell Distribution Width 12.1, Platelet Count 267, Mean Platelet Volume 7.0, Neutrophils (%) (Auto) 35.1L, Lymphocytes (%) (Auto) 51.5H, Monocytes (%) (Auto) 7.9, Eosinophils (%) (Auto) 4.4H, Basophils (%) ( Auto) 1.1, Sodium Level 148H, Potassium Level 3.7, Chloride Level 113H, Carbon Dioxide Level 25, Anion Gap 10, Blood Urea Nitrogen 18, Creatinine 0.5L, Estimat Glomerular Filtration Rate > 60, Glucose Level 100, Calcium Level 9.3 Height (Feet): 5 Height (Inches): 2.00 Weight (Pounds): 166 General Appearance: lethargic EENT: normal ENT inspection Neck: normal alignment Cardiovascular: normal peripheral pulses, normal rate, regular rhythm Respiratory/Chest: chest wall non-tender, lungs clear, normal breath sounds Abdomen: normal bowel sounds, non tender, soft Extremities: normal inspection Edema: no edema noted Arm (L), no edema noted Arm (R), no edema noted Leg (L), no edema noted Leg (R), no edema noted Pedal (L), no edema noted Pedal (R), no edema noted Generalized Neurologic: motor weakness Skin: normal pigmentation, warm/dry Objective lower lip sl swollen Jules Bee DO Jan 23, 2019 10:18
--- NOTE | 2019-01-23 10:32 | NUR ---
DISCHARGE PLANNING: NOTE CLINICALS FAXED TO [facility] FOR POSSIBLE DC TODAY MALIK T: [phone] F: [phone]
--- NOTE | 2019-01-23 11:54 | CDS Physician Query ---
Clarification is required for compliance, coding accuracy, and to reflect severity of illness for this patient. Dear Dr. Jules Bee Date: 01/23/2019 CDS name: Blaire Gomez Clinical Documentation states: 59-year-old female from [facility], who presents with three days of increasing lower lip cellulitis and red and swelling...Leukocytosis Lab Value/Radiographic finding of Na levels: 01/22/19 150, 01/23/19 148 Treatment/Medications: IV Dextrose 50% Please Clarify if there is a diagnosis associated with this finding: [] Hypernatremia [] Clinically insignificant sodium levels [] Other [] Clinically Undetermined Present on Admission: [] Yes [] No [] Clinically Undetermined Physician signature Date Please also document in your Progress Notes and/or Discharge Summary and indicate if the condition was present on admission. MANASAD
[2019-01-23 12:00] VITALS: BP 127/71
--- NOTE | 2019-01-23 12:22 | NUR ---
DISCHARGE DISPOSITION: PLEASE READ PATIENT TO BE DISCHARGED TO [facility] [address] [facility] [address] T: [phone]>> CALL FOR REPORT [facility] ETA 1430 SKILLED NURSING SISTER SHELDON [place]IN [phone] MADE AWARE OF THE DC VIA VM
--- NOTE | 2019-01-23 13:11 | Pulmonology Progress Note ---
Assessment/Plan Problems: (1) Facial cellulitis (2) COPD (chronic obstructive pulmonary disease) (3) Nicotine addiction Assessment/Plan improving continue abx respiratory treatment check electrolytes symptomatic treatment Subjective ROS Limited/Unobtainable: No Constitutional: Reports: no symptoms HEENT: Repors: no symptoms Respiratory: Reports: no symptoms Allergies: Coded Allergies: No Known Allergies (Unverified , 01/20/19) Objective Last 24 Hour Vital Signs Date Time Temp Pulse Resp B/P (MAP) Pulse Ox O2 Delivery O2 Flow Rate FiO2 01/23/19 09:54 96 Nasal Cannula 2.0 28 01/23/19 09:54 83 18 96 Nasal Cannula 2.0 28 01/23/19 09:00 Nasal Cannula 2.0 01/23/19 08:00 97.8 83 18 105/63 (77) 95 01/23/19 04:00 97.7 73 16 104/66 (79) 94 01/23/19 00:00 97.9 70 18 95/54 (68) 93 01/22/19 21:08 96 Nasal Cannula 2.0 28 01/22/19 21:08 88 20 96 Nasal Cannula 2.0 28 01/22/19 21:00 Nasal Cannula 2.0 01/22/19 20:00 98.3 67 17 102/59 (73) 96 01/22/19 16:00 98.7 67 18 105/57 (73) 96 Intake and Output 01/22/19 01/23/19 19:00 07:00 Intake Total 800 ml Balance 800 ml Intake Oral 800 ml # Voids 3 2 # Bowel Movements 2 1 General Appearance: WD/WN HEENT: normocephalic, atraumatic, anicteric Respiratory/Chest: chest wall non-tender, lungs clear, normal breath sounds Breasts: no masses Cardiovascular: normal peripheral pulses, normal rate Abdomen: normal bowel sounds, soft, non tender Genitourinary: normal external genitalia Extremities: no cyanosis Skin: no rash Microbiology Date/Time Source Procedure Growth Status 01/21/19 02:35 Blood Blood Culture - Preliminary NO GROWTH AFTER 48 HOURS Resulted 01/21/19 02:20 Blood Blood Culture - Preliminary NO GROWTH AFTER 48 HOURS Resulted 01/21/19 02:30 Nasal Nares MRSA Culture - Final NO METHICILLIN RESISTANT STAPH AUREUS... Complete 01/22/19 11:00 Stool Clostridium difficile Toxin Assay - Final Complete 01/21/19 02:53 Rectum - Final NO CARBAPENEM-RESISTANT ENTEROBACTERI... Complete 01/21/19 02:30 Rectum VRE Culture - Final NO VANCOMYCIN RESISTANT ENTEROCOCCUS ... Complete Laboratory Tests 01/23/19 05:10: White Blood Count 8.6, Red Blood Count 4.03L, Hemoglobin 12.9, Hematocrit 39.1, Mean Corpuscular Volume 97, Mean Corpuscular Hemoglobin 31.9H, Mean Corpuscular Hemoglobin Concent 32.9, Red Cell Distribution Width 12.1, Platelet Count 267, Mean Platelet Volume 7.0, Neutrophils (%) (Auto) 35.1L, Lymphocytes (%) (Auto) 51.5H, Monocytes (%) (Auto) 7.9, Eosinophils (%) (Auto) 4.4H, Basophils (%) ( Auto) 1.1, Sodium Level 148H, Potassium Level 3.7, Chloride Level 113H, Carbon Dioxide Level 25, Anion Gap 10, Blood Urea Nitrogen 18, Creatinine 0.5L, Estimat Glomerular Filtration Rate > 60, Glucose Level 100, Calcium Level 9.3 Current Medications Medications (Trade) Dose Ordered Sig/Wolfgang Route PRN Reason Start Time Stop Time Status Last Admin Dose Admin Acetaminophen (Tylenol) 650 mg Q4H PRN ORAL T>100.5 01/21/19 08:15 02/20/19 08:14 Albuterol/ Ipratropium (Albuterol/ Ipratropium) 3 ml Q4H PRN HHN Shortness of Breath 01/21/19 08:15 01/26/19 08:14 Aspirin (Ecotrin) 81 mg DAILY ORAL 01/21/19 09:00 02/20/19 08:59 01/23/19 08:54 Atorvastatin Calcium (Lipitor) 10 mg BEDTIME ORAL 01/21/19 21:00 02/20/19 20:59 01/22/19 20:23 Dextrose (Dextrose 50%) 25 ml STAT PRN IV Hypoglycemia 01/21/19 08:15 02/20/19 08:14 Dextrose (Dextrose 50%) 50 ml Q30M PRN IV Hypoglycemia 01/21/19 08:15 02/20/19 08:14 Doxycycline Monohydrate (Doxycycline Monohydrate) 100 mg EVERY 12 HOURS ORAL 01/22/19 13:15 01/29/19 13:14 01/23/19 08:54 Heparin Sodium (Porcine) (Heparin 5000 units/ml) 5,000 units EVERY 12 HOURS SUBQ 01/21/19 09:00 02/20/19 08:59 01/23/19 08:54 Morphine Sulfate (Morphine Sulfate) 2 mg Q4H PRN IVP Moderate Pain (Pain Scale 4-6) 01/21/19 08:15 01/28/19 08:14 Nitroglycerin (Ntg) 0.4 mg Q5MIN X 3 DOSES PRN SL Prn Chest Pain 01/21/19 08:30 02/20/19 08:29 Ondansetron HCl (Zofran) 4 mg Q6H PRN IVP Nausea & Vomiting 01/21/19 08:15 02/20/19 08:14 Pantoprazole (Protonix) 40 mg DAILY ORAL 01/21/19 09:00 02/20/19 08:59 01/23/19 08:54 Phenytoin (Dilantin) 100 mg Q8HR ORAL 01/21/19 09:00 02/20/19 08:59 01/23/19 06:02 Polyethylene Glycol (Miralax) 17 gm DAILYPRN PRN ORAL Constipation 01/21/19 08:15 02/20/19 08:14 Temazepam (Restoril) 15 mg HSPRN PRN ORAL Insomnia 01/21/19 21:00 01/28/19 20:59 01/22/19 21:56 Fred Morris MD Jan 23, 2019 13:11
--- NOTE | 2019-01-23 13:13 | Infectious Diseases Prog Note ---
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 Will continue to follow along with you. Discussed with RN. Subjective Allergies: Coded Allergies: No Known Allergies (Unverified , 01/20/19) Subjective afebrile no leukocytosis discharge planning Objective Vital Signs Last 24 Hour Vital Signs Date Time Temp Pulse Resp B/P (MAP) Pulse Ox O2 Delivery O2 Flow Rate FiO2 01/23/19 09:54 96 Nasal Cannula 2.0 28 01/23/19 09:54 83 18 96 Nasal Cannula 2.0 28 01/23/19 09:00 Nasal Cannula 2.0 01/23/19 08:00 97.8 83 18 105/63 (77) 95 01/23/19 04:00 97.7 73 16 104/66 (79) 94 01/23/19 00:00 97.9 70 18 95/54 (68) 93 01/22/19 21:08 96 Nasal Cannula 2.0 28 01/22/19 21:08 88 20 96 Nasal Cannula 2.0 28 01/22/19 21:00 Nasal Cannula 2.0 01/22/19 20:00 98.3 67 17 102/59 (73) 96 01/22/19 16:00 98.7 67 18 105/57 (73) 96 Height (Feet): 5 Height (Inches): 2.00 Weight (Pounds): 166 Objective General Appearance: well appearing, no apparent distress, GCS 15 Head: normocephalic Eyes: bilateral eye normal inspection, bilateral eye PERRL, bilateral eye EOMI ENT: moist mucus membranes, other - Left lower lip most swollen and indurated Neck: full range of motion, supple Respiratory: lungs clear, normal breath sounds, no respiratory distress, no wheezing Cardiovascular : regular rate, rhythm, no edema Gastrointestinal: normal inspection, normal bowel sounds, non tender, non- distended, overweight Genitourinary: no CVA tenderness Musculoskeletal: back normal, normal range of motion, no calf tenderness Neurologic: alert, grossly normal, oriented Psychiatric: depressed affect Skin: other - No urticaria Microbiology Date/Time Source Procedure Growth Status 01/21/19 02:35 Blood Blood Culture - Preliminary NO GROWTH AFTER 48 HOURS Resulted 01/21/19 02:20 Blood Blood Culture - Preliminary NO GROWTH AFTER 48 HOURS Resulted 01/21/19 02:30 Nasal Nares MRSA Culture - Final NO METHICILLIN RESISTANT STAPH AUREUS... Complete 01/22/19 11:00 Stool Clostridium difficile Toxin Assay - Final Complete 01/21/19 02:53 Rectum - Final NO CARBAPENEM-RESISTANT ENTEROBACTERI... Complete 01/21/19 02:30 Rectum VRE Culture - Final NO VANCOMYCIN RESISTANT ENTEROCOCCUS ... Complete Laboratory Tests Test 01/23/19 05:10 White Blood Count 8.6 K/UL (4.8-10.8) Red Blood Count 4.03 M/UL (4.20-5.40) L Hemoglobin 12.9 G/DL (12.0-16.0) Hematocrit 39.1 % (37.0-47.0) Mean Corpuscular Volume 97 FL (80-99) Mean Corpuscular Hemoglobin 31.9 PG (27.0-31.0) H Mean Corpuscular Hemoglobin Concent 32.9 G/DL (32.0-36.0) Red Cell Distribution Width 12.1 % (11.6-14.8) Platelet Count 267 K/UL (150-450) Mean Platelet Volume 7.0 FL (6.5-10.1) Neutrophils (%) (Auto) 35.1 % (45.0-75.0) L Lymphocytes (%) (Auto) 51.5 % (20.0-45.0) H Monocytes (%) (Auto) 7.9 % (1.0-10.0) Eosinophils (%) (Auto) 4.4 % (0.0-3.0) H Basophils (%) (Auto) 1.1 % (0.0-2.0) Sodium Level 148 MMOL/L (136-145) H Potassium Level 3.7 MMOL/L (3.5-5.1) Chloride Level 113 MMOL/L (98-107) H Carbon Dioxide Level 25 MMOL/L (21-32) Anion Gap 10 mmol/L (5-15) Blood Urea Nitrogen 18 mg/dL (7-18) Creatinine 0.5 MG/DL (0.55-1.30) L Estimat Glomerular Filtration Rate > 60 mL/min (>60) Glucose Level 100 MG/DL (74-106) Calcium Level 9.3 MG/DL (8.5-10.1) Current Medications Medications (Trade) Dose Ordered Sig/Wolfgang Route PRN Reason Start Time Stop Time Status Last Admin Dose Admin Acetaminophen (Tylenol) 650 mg Q4H PRN ORAL T>100.5 01/21/19 08:15 02/20/19 08:14 Albuterol/ Ipratropium (Albuterol/ Ipratropium) 3 ml Q4H PRN HHN Shortness of Breath 01/21/19 08:15 01/26/19 08:14 Aspirin (Ecotrin) 81 mg DAILY ORAL 01/21/19 09:00 02/20/19 08:59 01/23/19 08:54 Atorvastatin Calcium (Lipitor) 10 mg BEDTIME ORAL 01/21/19 21:00 02/20/19 20:59 01/22/19 20:23 Dextrose (Dextrose 50%) 25 ml STAT PRN IV Hypoglycemia 01/21/19 08:15 02/20/19 08:14 Dextrose (Dextrose 50%) 50 ml Q30M PRN IV Hypoglycemia 01/21/19 08:15 02/20/19 08:14 Doxycycline Monohydrate (Doxycycline Monohydrate) 100 mg EVERY 12 HOURS ORAL 01/22/19 13:15 01/29/19 13:14 01/23/19 08:54 Heparin Sodium (Porcine) (Heparin 5000 units/ml) 5,000 units EVERY 12 HOURS SUBQ 01/21/19 09:00 02/20/19 08:59 01/23/19 08:54 Morphine Sulfate (Morphine Sulfate) 2 mg Q4H PRN IVP Moderate Pain (Pain Scale 4-6) 01/21/19 08:15 01/28/19 08:14 Nitroglycerin (Ntg) 0.4 mg Q5MIN X 3 DOSES PRN SL Prn Chest Pain 01/21/19 08:30 02/20/19 08:29 Ondansetron HCl (Zofran) 4 mg Q6H PRN IVP Nausea & Vomiting 01/21/19 08:15 02/20/19 08:14 Pantoprazole (Protonix) 40 mg DAILY ORAL 01/21/19 09:00 02/20/19 08:59 01/23/19 08:54 Phenytoin (Dilantin) 100 mg Q8HR ORAL 01/21/19 09:00 02/20/19 08:59 01/23/19 06:02 Polyethylene Glycol (Miralax) 17 gm DAILYPRN PRN ORAL Constipation 01/21/19 08:15 02/20/19 08:14 Temazepam (Restoril) 15 mg HSPRN PRN ORAL Insomnia 01/21/19 21:00 01/28/19 20:59 01/22/19 21:56 Janelle Krueger M.D. Jan 23, 2019 13:13
--- NOTE | 2019-01-23 15:24 | NUR ---
NURSE NOTES: DISCHARGED TO [facility] IN STABLE CONDITION. TRANSFER PAPERS AND ORDERS SENT WITH PT. REPORT GIVEN TO MIGUELITO CON[facility]PCION.
--- NOTE | 2019-01-24 12:50 | Diagnostic Imaging Report ---
APPROVED REPORT CPT Code: 54432 Present Symptoms Lower Extremity Pain: Shortness of breath Comments: R/O DVT. BILATERAL: Imaging reveals a patent deep venous system bilaterally. There is no evidence of thrombus within the common femoral, superficial femoral, popliteal or tibial segments. The greater saphenous veins are within normal limits. Doppler indicates normal spontaneous flow within these segments.
--- NOTE | 2019-01-24 12:54 | Discharge Summary ---
Discharge Summary Discharge Summary _ DATE OF ADMISSION: 01/21/2019 DATE OF DISCHARGE: 01/23/2019 DISCHARGED BY: Dr Bee REASON FOR ADMISSION: 59 years old female with past medical history of COPD, hypercholesterolemia, seizure disorder, presented with lower lip swelling. Patient never had this reaction before. No prior history of allergy. Patient denied throat swelling, sore throat, wheezing, dyspnea, skin rashes, nausea, vomiting, diarrhea. She denied shortness of breath or chest pain. No fever or chills. No chest pain. No palpitation. No dysuria. No abdominal pain. No joint pain. No rashes. Upon evaluation vital signs were stable. Laboratory work-up revealed leukocytosis WBC 17.1, stable hemoglobin and hematocrit. Stable electrolytes and renal parameters. Glucose 115. Stable LFT. Troponin negative. pro BNP 33. EKG revealed sinus rhythm . no acute ischemic changes Dilantin level therapeutic. Urinalysis revealed hematuria , +1 protein, no evidence of urinary tract infection. Lactic acid 0.9. Patient pancultured and started on empiric antibiotics. Patient admitted to medical surgical floor for further management. CONSULTANTS: pulmonary Dr. Morris ID specialist Dr. Krueger [facility] COURSE: Patient admitted to medical surgical floor. Infectious disease specialist closely followed. Antibiotic provided as per ID specialist recommendation. Blood cultures were negative. Stool for C. difficile was negative. Leukocytosis resolved. No fevers. ID specialist doubted infection, possibly allergic reaction versus angioedema. Leukocytosis was likely reactive , and resolved the next day. Urinalysis was negative. Patient initially received 1 dose of vancomycin , cefepime and Zosyn. Patient afterwards started on empiric doxycycline. ID specialist recommended complete doxycycline treatment for total of 5 days. Supplemental oxygen and breathing treatment with bronchodilator were on board as needed. No evidence of respiratory distress. Pulse oximetry was stable on room air. Patient was counseled on smoking cessation . Patient declined nicotine patch. Home medication continued. Patient was on antiplatelet therapy with aspirin. Statin continued. DVT and GI prophylaxis provided. Bowel regimen instituted. Seizure precaution maintained. Dilantin continued. No evidence of seizure activity while in the hospital. Patient clinically stabilized and was ready for discharge. FINAL DIAGNOSES: Lower lip swelling likely allergic reaction versus angioedema Possible lip cellulitis Seizure disorder COPD Nicotine addiction DISCHARGE MEDICATIONS: See Medication Reconciliation list. DISCHARGE INSTRUCTIONS: [facility] Follow up with medical doctor at the facility. I have been assigned to dictate discharge summary for this account. I was not involved in the patient's management. Tammy Cooper NP Jan 24, 2019 12:54
--- NOTE | 2019-01-28 11:49 | Cardiology Report ---
APPROVED REPORT EKG Measurement Heart [id number] Normal sinus rhythm Nonspecific ST and T wave abnormality Abnormal ECG
== END 2019-01-23 15:05 | DRG 916 ==
LOC: EDBD 22:31 → EMR 22:50 → 3E 01-21 02:20 → EDBEDREQ 01-21 02:39
DX: T78.3XXA Angioneurotic edema, initial encounter (principal); T78.49XA Other allergy, initial encounter; K13.0 Diseases of lips; J44.9 Chronic obstructive pulmonary disease, unspecified; G40.909 Epilepsy, unspecified, not intractable, without status epilepticus; E78.00 Pure hypercholesterolemia, unspecified; F17.200 Nicotine dependence, unspecified, uncomplicated
CPT/HCPCS: 36415; 71045; 80048; 80053; 80185; 81003; 82550; 83520; 83605; 83880; 84484; 85025; 85610; 85730; 86332; 87040; 87081; 87324; 93005; 93970; 94664; 96374; 96375; 99285